=== PATIENT | male | born 1945 | race Two or more races ===

== ENCOUNTER → 2016-12-29 | Outpatient (CLI) | payer MEDICARE, OTHER ==
[~2016-12-29] MED LIST: AMLO-218 PO; ASPI325T4 PO; ATOR10TA65 PO; CARV3.12 PO; GEMF600T PO; ISOS120T15 PO; LISI10TA2 PO; MTF1000T PO; NITR0.4T6 SL
--- NOTE | 2016-12-29 11:59 | RADRPT ---
PROCEDURE: XR pelvis/left hip. CLINICAL INDICATION: Hip pain TECHNIQUE: AP pelvis/AP and lateral left hip views performed COMPARISON: No prior studies are available for comparison. FINDINGS: There is severe left hip osteoarthrosis. This is associated with joint space narrowing, subchondral sclerosis , subchondral cyst formation and osteophytosis. There is mild right hip osteoarthrosis. Th ere is normal mineralization. No fractures or osseous lesions are identified. The soft tissues are unremarkable. IMPRESSION: Severe left hip osteoarthrosis. Mild right hip osteoarthrosis RPTAT: HGDB .Trav Frias MD, Date Time Electronically viewed and signed by .Trav Frias MD, on 12/29/2016 11:59 .B/
== END | disposition home or self-care (01) ==
LOC: HKI 10:27
PROVIDERS: ATTEND Orthopaedic Surgery
DX: M25.552 Pain in left hip (principal); M16.12 Unilateral primary osteoarthritis, left hip
CPT/HCPCS: 73502; Z7500; G0463

== ENCOUNTER → 2017-05-01 | Outpatient (CLI) | payer MEDICARE, OTHER ==
[~2017-05-01] MED LIST changes: +NITR0.4T32 SL; -NITR0.4T6 SL
--- NOTE | 2017-05-01 16:05 | RADRPT ---
PROCEDURE: XR Left hip and pelvis. CLINICAL INDICATION: Left hip pain and pelvic pain. TECHNIQUE: 3 views. Frontal pelvis. Frontal and lateral left hip. COMPARISON: 12/29/2016. FINDINGS: There is severe left hip osteoarthrosis. This is associated with joint space narrowing, subchondral sclerosis , subchondral cyst formation and osteophytosis. There is mild right hip osteoarthrosis wit h osteophytes noted. There is normal mineralization. No fractures or osseous lesions are identified. Surgical clips are present in the soft tissues of the left proximal thigh. IMPRESSION: 1. Severe left hip osteoarthrosis. 2. Mild right hip osteoarthrosis. 3. Surgical clips in the soft tissues of the left proximal thigh. 4. Unremarkable study. RPTAT: QQ .Osmani Wilkerson MD, Date Time Electronically viewed and signed by .Osmani Wilkerson MD, MD on 05/01/2017 16:05 .R/
--- NOTE | 2017-05-01 22:43 | HKNOTE ---
DATE OF SERVICE: 05/01/2017 CHIEF COMPLAINT: Left hip pain. HISTORY OF PRESENT ILLNESS: This is a 71-year-old male who is complaining of progressively worsening pain in the left groin. The pain is radiating to the left knee. He has difficulty ambulating. He is unable to go up and down stairs. He is using a walker. He states that the pain is severe and rates it as 10/10. He is unable to perform his activities of daily living. He has been taking pain medications including diclofenac without any pain relief. He denies any back pain. There are no alleviating factors. PHYSICAL EXAMINATION: Gait: Antalgic gait, use of assistive device. Left hip exam: 0-80 degrees of flexion, 20 degrees obligate external rotation, -10 degrees internal rotation, 1 cm leg length discrepancy, nontender in the trochanteric region. Right hip exam: 0-100 degrees of flexion, 20 degrees of internal rotation, 40 degrees of external rotation. IMAGING: AP pelvis x-ray: There is advanced degenerative joint disease of the left hip. The left hip is 1 cm shorter than the right hip. X-ray, two-view left hip: Advanced degenerative joint disease of the left hip. IMPRESSION: A 71-year-old male with advanced osteoarthritis of the left hip who has failed nonoperative management. PLAN: We will request authorization for left total hip arthroplasty. I discussed the risks, benefits and alternatives of surgical intervention with the patient. He will return in four weeks for his preoperative evaluation. Dictated By: Liz Mcgill MD /lashae/leora /Document#: [id number]
== END | disposition home or self-care (01) ==
LOC: HKI 15:25
PROVIDERS: ATTEND Orthopaedic Surgery Adult Reconstructive Orthopaedic Surgery
DX: M25.552 Pain in left hip (principal); M16.12 Unilateral primary osteoarthritis, left hip
CPT/HCPCS: 73522; G0463

== ENCOUNTER → 2017-07-17 | Outpatient (CLI) | payer MEDICARE, OTHER ==
--- NOTE | 2017-07-17 22:01 | HKNOTE ---
DATE OF SERVICE: 07/17/2017 CHIEF COMPLAINT: Left hip pain. HISTORY OF PRESENT ILLNESS: Mr. Rivas is a 71-year-old male with previous cardiac history, who is scheduled to undergo a left total hip arthroplasty on 07/18/2017 at [facility]. He is here today for his preoperative evaluation. He is accompanied by his son. Due to his previou s cardiac history, Mr. Rivas has been taking aspirin 325 mg daily. His last dose was today. He w as previously instructed on cessation of all nonsteroidal anti-inflammatories, as well as aspirin 7 days prior to surgery. He states that he did not understand the previous instructions. Otherwise, he denies any chest pain or shortness of breath. IMPRESSION: A 71-year-old male with left hip degenerative joint disease. PLAN: I discussed risks associated with surgery including, but not limited to, infection, deep veno us thrombosis, pulmonary embolism, damage to neurovascular structures including the lateral femoral cutaneous nerve, femoral nerve and its branches, as well as the iliac artery and vein, instability, dislocation, leg length discrepancy, fracture, heart attack, stroke, risks associated with anesthesi a, need for blood transfusion, as well as . I explained to the patient and his son that given that he has not stopped aspirin 7 days prior to surgery, he is at a high risk for blood transfusion intraoperatively or postoperatively. I also placed a call to his hyperion administrator. Mr. Rivas is curr ently scheduled for a left direct anterior total hip arthroplasty on 07/18/2017 at [facility]. All questions were answered to his satisfaction and informed consent was obtained. Dictated By: BRYANT CHEN/ABEL Conf#: [id number] DID#: [id number]
== END | disposition home or self-care (01) ==
LOC: HKI 13:54
PROVIDERS: ATTEND Orthopaedic Surgery Adult Reconstructive Orthopaedic Surgery
DX: Z01.818 Encounter for other preprocedural examination (principal); M16.12 Unilateral primary osteoarthritis, left hip
CPT/HCPCS: G0463

== ENCOUNTER 2017-07-18 09:30 | Inpatient (IN) | payer MEDICARE, OTHER ==
[2017-07-17 10:33] VITALS: BMI 32.0
[~2017-07-18] VITALS: Ht 170.2 cm; Wt 93.1 kg
[~2017-07-18 09:30] MED LIST changes: +ACETAMINOPHEN 1000MG/100ML IV 100 ML IVPB ONE; +CEFAZOLIN 2 GM/50 ML (PMX) 50 ML IVPB ONE; +CELECOXIB 200 MG CAP PO ONE; +DEXAMETHASONE 4 MG/ML 1 ML INJ IV ONE; +HIP PAIN COCKTAIL (CEFUROXIME) INJ SCH; +LACTATED RINGER'S 1,000 ML IV* SCH; +LANSOPRAZOLE 30 MG CAP PO ONE; +ONDANSETRON 4 MG INJ IV ONE; +TRANEXAMIC ACID 1,000 MG in DEXTROSE 5% 100 ML IV ONE; +TRANEXAMIC ACID 1,000 MG in DEXTROSE 5% 100 ML IVPB ONE; +oxyCODONE (CR) 10 MG TAB [oxyCONTIN] PO ONE
[2017-07-25] VITALS (26 sets, daily range): BP systolic 87–150; BP diastolic 53–81; PULSE 66–81; RESP 6–20; Ht 170.2 cm; Wt 93.1 kg
--- NOTE | 2017-07-25 06:51 | RADRPT ---
PROCEDURE: XR Chest. CLINICAL INDICATION: Preoperative evaluation prior to general anesthesia TECHNIQUE: Portable single view of the chest COMPARISON: 12/21/2015 FINDINGS: Median sternotomy wires and atherosclerotic aorta. Normal heart size. There has been interval placem ent of a 2 lead AICD device with generator on the left. The lungs are clear and no pleural effusion or significant edema is seen. No bony abnormality is seen. IMPRESSION: Interval AICD placement. No acute pulmonary disease. Aortic atherosclerosis. RPTAT: HLBE Physician Spencer Date Time Electronically viewed and signed by Catrachita Barry Physician on 07/25/2017 06:51 LE/
[2017-07-25] MEDS ORDERED: POLYMYXIN/BACITRACIN 1L IRRIG ONE (06:56)
[2017-07-25] MEDS ORDERED: POLYMYXIN B 500000 UNIT INJ ONE (06:57)
[2017-07-25] MEDS ORDERED: BACITRACIN 50000 UNITS INJ ONE (06:59)
[2017-07-25] MEDS ORDERED: TRANEXAMIC ACID 1,000 MG in SOD CHLORIDE 0.9% 100 ML IV ONE (07:00)
[2017-07-25] MEDS ORDERED: ACETAMINOPHEN 1000MG/100ML IV 100 ML IVPB ONE (07:00)
[2017-07-25] MEDS ORDERED: CEFAZOLIN 2 GM/50 ML (PMX) 50 ML IVPB ONE (07:00)
[2017-07-25] MEDS ORDERED: oxyCODONE (CR) 10 MG TAB [oxyCONTIN] PO ONE (07:00)
[2017-07-25] MEDS ORDERED: CELECOXIB 200 MG CAP PO ONE (07:00)
[2017-07-25] MEDS ORDERED: LACTATED RINGER'S 1,000 ML IV* SCH (07:00)
[2017-07-25] MEDS ORDERED: LANSOPRAZOLE 30 MG CAP PO ONE (07:00)
[2017-07-25] MEDS ORDERED: HIP PAIN COCKTAIL (CEFUROXIME) INJ SCH ×7 (07:00)
[2017-07-25] MEDS ORDERED: ETOMIDATE 20 MG INJ ONE (07:00)
[2017-07-25] MEDS ORDERED: DEXAMETHASONE 4 MG/ML 1 ML INJ IV ONE (07:00)
[2017-07-25] MEDS ORDERED: ONDANSETRON 4 MG INJ IV ONE (07:00)
[2017-07-25] MEDS ORDERED: TRANEXAMIC ACID 1,000 MG in SOD CHLORIDE 0.9% 100 ML IVPB ONE (07:00)
--- NOTE | 2017-07-25 07:25 | HPN ---
Date/Time of Note Date/Time of Note DATE: 07/25/17 TIME: 07:24 Interval H&P Admission Note Pt. seen H&P reviewed: No system changes CONNER KHOURY PA-C Jul 25, 2017 07:25
[2017-07-25] MEDS ORDERED: FENTAnyl 50 MCG/ML VIAL ONE (07:34)
[2017-07-25] MEDS ORDERED: ROCURONIUM 50 MG INJ ONE (08:41)
[2017-07-25] MEDS ORDERED: LIDOCAINE 2% (SDV) 5 ML INJ ONE (08:41)
[2017-07-25] MEDS ORDERED: PROPOFOL 20 ML ONE (08:41)
[2017-07-25] MEDS ORDERED: SUGAMMADEX SODIUM 200 MG/2 ML VIAL IV ONE (08:41)
[2017-07-25] MEDS ORDERED: SUCCINYLCHOLINE CHLORIDE 100 MG/5 ML SYG IV ONE (08:41)
[2017-07-25] MEDS ORDERED: CEFAZOLIN 1 GM INJ ONE (08:41)
[2017-07-25] MEDS ORDERED: ONDANSETRON 4 MG INJ IV PRN (10:00)
[2017-07-25] MEDS ORDERED: MEPERIDINE 25 MG INJ IV PRN (10:00)
[2017-07-25] MEDS ORDERED: METOCLOPRAMIDE 10 MG INJ IV PRN (10:00)
[2017-07-25] MEDS ORDERED: HYDROmorphONE (0.2 MG/ML) 10ML SYG IV PRN (10:00)
[2017-07-25] MEDS ORDERED: FENTAnyl 50 MCG/ML VIAL IV PRN ×2 (10:00)
[2017-07-25] MEDS ORDERED: DIPHENHYDRAMINE 50 MG INJ IV PRN (10:00)
--- NOTE | 2017-07-25 10:21 | RADRPT ---
PROCEDURE: Intraoperative imaging of the left hip with fluoroscopy. CLINICAL INDICATION: Left hip pain. Intraoperative. TECHNIQUE: 8 images of the left hip were obtained in the operating room with an image intensifier. No radiologist was in attendance. 0.5 minutes of fluoroscopy time was used. COMPARISON: No prior study is available for comparison. FINDINGS: Images demonstrate placement of a total left hip arthroplasty. IMPRESSION: 1. Satisfactory intraoperative imaging of the left hip. RPTAT: QQ .Osmani Wilkerson MD, MD Date Time Electronically viewed and signed by .Osmani Wilkerson MD, on 07/25/2017 10:21 .R/
--- NOTE | 2017-07-25 10:33 | SIPON ---
Date/Time of Note Date/Time of Note DATE: 07/25/17 TIME: 10:30 Operative Report Preoperative Diagnosis Left Hip Osteoarthritis Postoperative Diagnosis Same Operation/Procedure Performed Left Anterior Total Hip Arthroplasty Surgeon Liz Hutton MD respiratory equipment assistant Ayo Oliveira Second assist: CONNER KHOURY PA-C Anesthesia: general Estimated blood loss: 150 - 200 ml's Transfusion Required none Specimen Resected Bone Grafts/Implants Depuy 56mm Franklin Cup, size 12 corail stem STD offset, 36mm +1.5 Biolox ceramic head, 25mm cancellous screw Complications none LIZ HUTTON MD Jul 25, 2017 10:33
--- NOTE | 2017-07-25 11:02 | PDOCDIS ---
Discharge Instructions DIAGNOSIS Discharge Diagnosis Status post left total hip arthroplasty via anterior route. CONDITION Patient Condition: Good HOME CARE INSTRUCTIONS: Diet Instructions: Regular ACTIVITY: Activity Restrictions: Slowly Increase Activity Rest between Activity Avoid heavy lifting No Sexual Activity Do not Drive Do not operate Machinery Do not operate Power Tool Avoid Heavy Housework Keep Limb Elevated (May use cold therapy over surgical dressing. ) Weight Bearing (Weight-bear as tolerated using front wheeled walker.) Bathing Restrictions: Shower (No water to the surgical area until seen postoperative. Keep this area clean and dry.) FOLLOW UP/APPOINTMENTS Follow-up Plan Follow-up at your postoperative visit provided to you at your preoperative exam. CONNER KHOURY PA-C Jul 25, 2017 11:02
[2017-07-25] MEDS: HYDROmorphONE (0.2 MG/ML) 10ML SYG IV PRN ×2 (11:14→11:21)
[2017-07-25] MEDS ORDERED: BETHANECHOL 25 MG TAB PO PRN (11:30)
[2017-07-25] MEDS ORDERED: BISACODYL 10 MG SUPP PR PRN (12:00)
[2017-07-25] MEDS ORDERED: MAGNESIUM HYDROXIDE 30ML CUP PO PRN (12:00)
[2017-07-25] MEDS ORDERED: SENNA/DOCUSATE NA (8.6MG/50MG) TAB PO PRN (12:00)
[2017-07-25] MEDS ORDERED: ZOLPIDEM 5 MG TAB PO PRN (12:00)
[2017-07-25] MEDS ORDERED: DIPHENHYDRAMINE 50 MG INJ IM PRN (12:00)
[2017-07-25] MEDS ORDERED: NA PHOSPHATE/BIPHOS 133 ML ENEMA PR PRN (12:00)
[2017-07-25] MEDS ORDERED: oxyCODONE 5 MG TAB PO PRN ×2 (12:00)
[2017-07-25] MEDS ORDERED: DOCUSATE SODIUM 100 MG CAP PO ONE (12:00)
[2017-07-25] MEDS: ONDANSETRON 4 MG INJ IV SCH ×2 (12:00→18:00)
[2017-07-25] MEDS ORDERED: ASPIRIN (EC) 325 MG TAB PO ONE (12:00)
[2017-07-25] MEDS: CEFAZOLIN 1 GM/50 ML (PMX) 50 ML IVPB SCH ×2 (12:18→19:55)
--- NOTE | 2017-07-25 12:33 | OPR ---
DATE OF OPERATION: 07/25/2017 PREOPERATIVE DIAGNOSIS: Left hip osteoarthritis. POSTOPERATIVE DIAGNOSIS: Left hip osteoarthritis. PROCEDURES PERFORMED: 1. Left total hip arthroplasty. CPT code 68643. 2. Computer assisted navigational procedure, CPT code 30178. 3. Interpretation of AP x-ray pelvis. 4. Interpretation of left hip x-ray, 2 views. SURGEON: Bryant Mcgill M.D. MEDICAL RECORD CLERK: 1. Ayo Oliveira. 2. Luis A Coleman. ANESTHESIOLOGIST: Dr. Woods. ANESTHESIA: General. ESTIMATED BLOOD LOSS: 200 mL. COMPLICATIONS: None. SPECIMENS: Resected bone. DISPOSITION: To PACU in stable condition. IMPLANT USED: A size 56 DePuy Rockwood cup, size 12 DePuy corail femoral stem standard offset 36 mm +1.5 Biolox Delta Ceramic femoral head, 25 mm cancellous screw. COMPLICATIONS: None. DISPOSITION: PACU in stable condition. INDICATION FOR PROCEDURE: This is a 71-year-old male with endstage osteoarthritis of the left hip with failed nonoperative management. Risks, benefits, alternatives of surgical intervention were discussed with the patient and informed consent was obtained. The risks of surgery include but are not limited to infection, deep venous thrombosis and limited to infection, deep venous thrombosis, pulmonary embolism , leg length discrepancy, fracture, damage to neurovascular structures requiring repair or loosening of the prosthesis, wear of prosthesis, need for revision surgery, heart attack, stroke, need for blood transfusion, risks associated with anesthesia and even . DESCRIPTION OF PROCEDURE: The patient was met in the partially the correct operative site was confirmed and marked. Patient was then brought into operating room. After induction of general anesthesia, he was placed in the supine position on the operating table. The left hip was prepped and draped in the usual sterile fashion. Before starting, a timeout was taken to identify the correct operative site and confirm the preoperative antibiotics consisting of 1 gram of IV Ancef, along with 1 gram of tranexamic acid were administered. At this point, an 8 cm incision was made approximately 2 cm lateral and 1 cm distal to the ASIS. The incision was carried down to the fascia. The fascia was then incised. Two Allis clamps were placed and the interval was then bluntly developed and the tensor fascia romel was then retracted laterally. The lateral circumflex vessels were identified and coagulated. The anterior capsule was then visualized and a capsulotomy was performed. At this point, markings were made for the napkin ring osteotomy of the femoral neck using the saw. The initial osteotomy was made and completed with the use of osteotome, a Delbert was then used to remove the napkin ring and a corkscrew was then placed in the femoral head and the head was then removed. The head was sized to 51 mm. Sequential reaming was begun with a 49 mm reamer in order to medialize the cup going up to a 55 mm reamer. A size 56 mm trial cup was then impacted into place and the radlink was used to determine the appropriate anteversion and abduction of the cup which was measured to be approximately 43 degrees of abduction with 24 degrees of anteversion. The trial cup was then removed and the appropriate size 56 mm Rockwood cup was then impacted into place on the radlink was used terminating clinician anteversion which was noted to be unchanged. At this point a 25 mm screw was placed in the posterior superior quadrant, a 36 mm liner was then impacted into place and the final acetabular x- rays were taken which again demonstrated the cup to be in appropriate abduction and anteversion. At this point, the femoral hook was used through was used and the leg was placed in external rotation, extension and adduction retractors were placed and the femoral release was performed using the box osteotome followed by a canal finder. Sequential broaching was begun with a broach going up to a size 12 broach. A trial 12 mm standard offset stem with a 36 mm +1.5 trial head and neck were placed. The hip was then reduced, taken through range of motion and noted to be stable in extension and external rotation looked to 120 degrees. After obtaining AP x-rays of the pelvis as well as left hip 2 view x-rays demonstrated that the leg lengths were equal and upon to be in appropriate position. The trial components were removed. The appropriate size components were placed. The hip was again reduced with unchanged stability and equal leg lengths and no fractures were seen. The hip was again taken through range of motion and noted to be stable. The wound was thoroughly irrigated. The capsule and fascia were closed using #1 Vicryl interrupted [id number] fashion. The subcutaneous tissue was closed using #2-0 Vicryl and the skin with 4-0 Monocryl in subcuticular fashion. Steri-Strips were applied. There were no complications. Patient was awakened and taken to postoperative care unit in stable condition. Prior to transfer. He was noted to have equal leg lengths. Palpable dorsalis pedis pulses. POSTOPERATIVE CARE: Patient will be weightbearing as tolerated. He will work with physical therapy. He will receive 2 additional doses of IV Ancef along with aspirin 325 mg p.o. b.i.d. for 6 weeks. He will have SCDs while in the hospital. Upon discharge, he will follow up in my office at the [facility] within 2 weeks postoperatively. Dictated By: BRYANT CHEN/ABEL Conf#: [id number] DID#: [id number] MTDD
--- NOTE | 2017-07-25 13:05 | RADRPT ---
PROCEDURE: XR Pelvis. CLINICAL INDICATION: Postop. TECHNIQUE: Single AP view of the pelvis. COMPARISON: 05/02/2017. FINDINGS: There are postsurgical changes of a total left hip arthroplasty. Hardware appears intact without jessie dence of hardware complication. There is soft tissue edema and gas about the left hip. There is no d efinite acute fracture or dislocation. Osseous alignment appears maintained. Ctoe catheter projecting over the pelvis. IMPRESSION: Postsurgical changes of a total left hip arthroplasty without evidence of hardware complication. RPTAT: AAEE Ryan Carlos Physician Date Time Electronically viewed and signed by Ryan Carlos Physician on 07/25/2017 13:04 PH/
--- NOTE | 2017-07-25 13:06 | RADRPT ---
PROCEDURE: XR Hip. CLINICAL INDICATION: Postop. TECHNIQUE: AP view of the left hip were performed. COMPARISON: Same day radiograph of the pelvis. FINDINGS: Postsurgical changes of a total left hip arthroplasty without evidence of hardware complication. The re is soft tissue edema and gas about the left hip related to surgery. There is no definite acute fr acture or dislocation. Osseous alignment appears maintained. IMPRESSION: Postsurgical changes of a total left hip arthroplasty without evidence of hardware complication. RPTAT: AAEE Ryan Carlos Physician Date Time Electronically viewed and signed by Ryan Carlos Physician on 07/25/2017 13:05 PH/
[2017-07-25] MEDS: SOD CHLORIDE 0.9% 1,000 ML IV SCH ×2 (13:18→23:33)
[2017-07-25] MEDS ORDERED: CEFAZOLIN 1 GM/50 ML (PMX) 50 ML IVPB SCH (14:00)
--- NOTE | 2017-07-25 14:18 | CONS ---
Date/Time of Note Date/Time of Note DATE: 07/25/17 TIME: 14:12 Assessment/Plan Assessment/Plan Chief Complaint/Hosp Course 71-year-old male who was brought to [facility] for elective left hip arthroplasty by orthopedic colleagues. 1. Left hip osteoarthritis. Status post left hip arthroplasty 07/25/2017. Status: Acute. -Postoperative anticoagulation, diet, weightbearing and antibiotics per orthopedic surgery team. -Continue pain control. 2. Coronary artery disease with history of CABG/PTCA with stenting status: Chronic. Status: Chronic - Resume home medications. 3. Severe cardiomyopathy with last known ejection fraction 20%. Status post AICD placed. Status: Chronic -Continue outpatient medical management. 4. Essential hypertension. Status: Chronic -We will resume home medications with some titration as blood pressure allows. 5. Hypercholesterolemia. Status: Chronic. -Resume statin. Obtain a lipid panel in a.m. 6. Type 2 diabetes. Status: Chronic. -We will place patient on Accu-Cheks/ISS/Lantus insulin. Hold metformin for now. -Obtain A1c. 7. Chronic anemia. -Obtain a baseline CBC with H&H. DVT prophylaxis: As per orthopedic team. Rest of the recommendation per hospital course. Approximately 60 minutes was spent on this consultation. Thank you for allowing us to partake in the care of Mr. Chet Rivas. Approximately 60 minutes was spent on this consultation. Patient was seen in collaboration with . Problems: Consultation Date/Type/Reason Admit Date/Time Jul 25, 2017 at 05:30 Reason for Consultation Postoperative medical management. Referring Provider: BRYANT HUTTON MD Hx of Present Illness This is a 71-year-old male with multiple comorbidities including left hip osteoarthritis, coronary artery disease, CABG, valve surgeries, PTCA with cardiac stents, ischemic cardiomyopathy with last known ejection fraction 20% with AICD placed, hypertension, type 2 diabetes, hypercholesterolemia, chronic anemia, who was brought to [facility] by orthopedic colleagues for elective left total hip arthroplasty on 07/25/2017. Hospitalist consultation was requested for postoperative medical management. Patient was seen at room 420 postoperatively, he currently denies any chest pain, shortness of breath, palpitation, nausea, vomiting, left leg pain, dizziness, lightheadedness or other constitutional symptoms. There is no current labs available to review. Vital signs with temperature 98.2 , pulse rate 68, blood pressure 96/58 and oxygen saturation 100% on 2 L nasal cannula. A 12 point review of system was assessed and is negative other than what is mentioned in the HPI. Past Medical History See HPI Past Surgical History See HPI Social History Patient denied history of alcohol, smoking or illicit drug use. Smoking Status: Never smoker Exam/Review of Systems Vital Signs Vitals Vital Signs Date Time Temp Pulse Resp B/P Pulse Ox O2 Delivery O2 Flow Rate FiO2 07/25/17 12:28 68 7 96/58 100 Nasal Cannula 2.0 07/25/17 11:05 98.2 Exam General: Well developed,adequately built, not in any acute distress . HEENT: Normocephalic, Atraumatic, No laceration or hematoma; Eyes: PEERL, Conjunctiva clear, Anicteric sclera Neck: Supple without any lymphadenopathy, nontender, no JVD, no carotid bruits, trachea midline, no thyromegaly Cardiac: S1, S2 auscultated, regular rhythm and rate, no mumurs or gallop Pulmonary: Normal respiratory effort. Chest clear to auscultation bilaterally, no adventitious breath sounds GI: Abdomen normal to inspection. Soft, non tender, non- distended, no masses, no rebound tenderness or guarding. Bowel sounds active on all four quadrants Genitourinary: Deferred Extremities: Left hip surgical site intact. Range of motion decreased on left lower extremity secondary to surgical intervention. No cyanosis, clubbing, or edema. Pulses [2+] bilaterally. No focal weakness appreciated. Neurologic: Alert to person, place, time, and situation. Affect appropriate, intact sensation. Skin: Clean,dry, and intact. No ecchymosis, no rashes, or lesions Results Results 24 hrs Laboratory Tests Test 07/25/17 06:40 Bedside Glucose 136 Medications Medications Current Medications Ropivacaine 60 ml/ Morphine Sulfate 4 mg/Clonidine 100 mcg/ Epinephrine 0.3 mg/ Ketorolac Tromethamine 30 mg/Cefuroxime Sodium 750 mg/ Sodium Chloride 50 ml INTRA-OP INJ Last administered on 07/25/17t 08:23; Admin Dose 30 ML; Start at 07:00; Stop 07/28/17 at 06:59 Lactated Ringer's 1,000 ml @ 125 mls/hr Q8H IV* ; Start 07/25/17 at 07:00 Sodium Chloride (NS) 1,000 ml @ 80 mls/hr [id number] IV Last administered on t 13:18; Admin Dose 80 MLS/HR; Start 07/25/17 at 11:03 Oxycodone HCl (Roxicodone) 20 mg Q3H PRN PO PAIN LEVEL 8-10; Start 07/25/17 at 12:00 Oxycodone HCl (Roxicodone) 10 mg Q3H PRN PO PAIN LEVEL 4-7; Start 07/25/17 at 12:00 Oxycodone HCl (Roxicodone) 5 mg Q3H PRN PO PAIN LEVEL 1-3; Start 07/25/17 at 12:00 Zolpidem Tartrate (Ambien) 5 mg HS PRN PO INSOMNIA; Start 07/25/17 at 12:00 Ondansetron HCl 4 mg 4 mg Q6H IV ; Start 07/25/17 at 12:00; Stop 07/26/17 at 06:01 Cefazolin Sodium (Ancef 1 Gm/50 ml (Pmx)) 50 ml @ 100 mls/hr Q8H IVPB Last administered on 07/25/17t 12:18; Admin Dose 100 MLS/HR; Start 07/25/17 at 12: 00; Stop 07/26/17 at 04:29 Celecoxib (Celebrex) 200 mg BID PO ; Start 07/26/17 at 09:00 Pantoprazole (Protonix Tab) 40 mg DAILY@06 PO ; Start 07/26/17 at 06:00 Docusate Sodium/ Ferrous Fumarate (Kerri-Sequels) 1 tab BID PO ; Start at 09:00 Docusate Sodium (Colace) 200 mg BID PO ; Start 07/26/17 at 09:00; Stop at 21:01 Simethicone (Mylicon) 80 mg TID PRN PO DISTENSION/GAS/BLOATING; Start at 12:00 Senna/Docusate Sodium (Senokot-S) 2 tab BID PRN PO CONSTIPATION; Start at 12:00 Magnesium Hydroxide (Milk Of Mag) 30 ml HS PRN PO CONSTIPATION; Start at 12:00 Bisacodyl (Dulcolax Supp) 10 mg DAILY PRN [place] CONSTIPATION; Start 07/25/17 at 12:00 Sodium Biphosphate/ Sodium Phosphate (Fleet Enema) 133 ml DAILY PRN [place] CONSTIPATION; Start 07/25/17 at 12:00 Diphenhydramine HCl (Benadryl) 25 mg Q4H PRN IM ITCHING OR RASH; Start at 12:00 Aspirin (Ecotrin) 325 mg BID PO ; Start 07/25/17 at 21:00 GEMA APARICIO NP Jul 25, 2017 14:18 GEMA APARICIO NP Jul 25, 2017 14:18
[2017-07-25] MEDS ORDERED: DEXTROSE 50% 50 ML SYRINGE IV PRN ×2 (15:00)
[2017-07-25] MEDS ORDERED: GLUCOSE GEL 15 GRAM TUBE PO PRN ×2 (15:00)
[2017-07-25] MEDS ORDERED: GLUCOSE GEL 15 GRAM TUBE BUCCAL PRN (15:00)
[2017-07-25] MEDS ORDERED: GLUCAGON 1 MG INJ IM PRN (15:00)
[2017-07-25] MEDS: oxyCODONE 5 MG TAB PO PRN (15:35)
[2017-07-25] MEDS: INSULIN ASPART [NOVOLOG] 3 ML PEN SC SCH ×2 (18:05→20:50)
[2017-07-25] MEDS: ASPIRIN (EC) 325 MG TAB PO SCH (20:48)
[2017-07-25] MEDS: ATORVASTATIN 10 MG TAB PO SCH (20:48)
[2017-07-25] MEDS: GEMFIBROZIL 600 MG TAB PO SCH (20:48)
[2017-07-26] MEDS: SOD CHLORIDE 0.9% 1,000 ML IV SCH ×3 (00:40→23:57)
[2017-07-26] MEDS: ACCU-CHEK XX SCH (02:00)
[2017-07-26] MEDS: CEFAZOLIN 1 GM/50 ML (PMX) 50 ML IVPB SCH (04:12)
[2017-07-26 05:00] VITALS: BP 128/68; PULSE 76; RESP 20
[2017-07-26] MEDS: ONDANSETRON 4 MG INJ IV SCH ×2 (05:15)
[2017-07-26] MEDS: PANTOPRAZOLE (EC) 40 MG TAB PO SCH (05:16)
[2017-07-26 05:56] LABS: BASOPHILS % 0.1 % (0.0-2.0); HEMATOCRIT 24.7 % (42.0-52.0); LYMPHOCYTES % 11.5 % (15.0-51.0); MEAN CORPUSCULAR HEMOGLOBIN 27.9 pg (29.0-33.0); MEAN CORPUSCULAR HGB CONC 32.4 g/dl (32.0-37.0); MEAN CORPUSCULAR VOLUME 86.1 fl (82.0-101.0); MEAN PLATELET VOLUME 9.4 fl (7.4-10.4); MONOCYTE # 0.8 10^3/ul (0.3-0.9); MONOCYTES % 8.4 % (0.0-11.0); NEUTROPHIL # 7.2 10^3/ul (1.6-7.5); NEUTROPHILS % 79.7 % (39.0-77.0); PLATELET COUNT 295 10^3/UL (140-415); RED BLOOD COUNT 2.87 10^6/ul (4.70-6.10); RED CELL DISTRIBUTION WIDTH 16.3 % (11.5-14.5)
[2017-07-26 06:29] LABS: CALCIUM 8.8 mg/dl (8.4-10.2); CREATININE 0.86 mg/dl (0.61-1.24); POTASSIUM 4.3 mmol/L (3.5-5.1)
[2017-07-26 06:40] LABS: CHOL/HDL RATIO 2.6 RATIO; MAGNESIUM 1.7 mg/dl (1.7-2.5)
[2017-07-26 07:24] LABS: THYROID STIMULATING HORMONE 0.42 MIU/L (0.465-4.680)
[2017-07-26] MEDS: INSULIN ASPART [NOVOLOG] 3 ML PEN SC SCH ×4 (07:50→21:00)
[2017-07-26 07:58] VITALS: BP 129/67; RESP 16
--- NOTE | 2017-07-26 08:11 | PN ---
Date/Time of Note Date/Time of Note DATE: 07/26/17 TIME: 08:09 Assessment/Plan VTE Prophylaxis VTE Prophylaxis Intervention: ambulation, SCD's, other (Aspirin 325 mg) Lines/Catheters IV Catheter Type (from Nrsg): Peripheral IV Cote in Place (from Nrsg): Yes Assessment/Plan Assessment/Plan -Pain Meds as needed -Dressing is clean and intact. -OOB with PT -ASA/SCDs for DVT Prophylaxis -Continue monitoring with Internal Medicine -Patient Stable -Expected discharge tomorrow home with home health pending clearance from physical therapy. Subjective 24 Hr Interval Summary 71-year-old male postop day 1 status post left total hip arthroplasty via anterior route. Denies any acute overnight events. Pain is well controlled as he has no complaints. Resting comfortably in bed. Patient states that he has not performed physical therapy status post surgery yet. Denies any chest pain/ tightness, calf pain or shortness of breath. Pain Control: well controlled Exam/Review of Systems Vital Signs Vitals Vital Signs Date Time Temp Pulse Resp B/P Pulse Ox O2 Delivery O2 Flow Rate FiO2 07/26/17 07:58 98.8 75 16 129/67 100 07/25/17 14:15 Nasal Cannula 2.0 Intake and Output 07/25/17 07/25/17 07/26/17 15:00 23:00 07:00 Intake Total 1300 ml 1010 ml 1450 ml Output Total 400 ml 300 ml 1400 ml Balance 900 ml 710 ml 50 ml Exam Free Text/Dictation -No complications with dressing intact. -Thigh soft -5/5 Quadriceps, Tibialis Anterior, EHL Gastrocnemius/Soleus and Peroneals -Normal Sensation -Able to actively flex the hip up to 20 today. Patient is performing plantarflexion and dorsiflexion as well as inversion and eversion to the ankle. -Palpable DP/PT, Capillary Refill <2 secs -No Distal Edema -Negative Leidy Sign/No calf pain -Toes Freely Movable Constitutional: alert, oriented, well developed Results Result Diagram: 07/26/17 0457 07/26/17 0457 CONNER KHOURY PA-C Jul 26, 2017 08:11
[2017-07-26] MEDS: CELECOXIB 200 MG CAP PO SCH ×2 (08:26→21:09)
[2017-07-26] MEDS: DOCUSATE SODIUM 100 MG CAP PO SCH ×2 (08:26→21:09)
[2017-07-26] MEDS: ASPIRIN (EC) 325 MG TAB PO SCH ×2 (08:26→21:09)
[2017-07-26] MEDS: GEMFIBROZIL 600 MG TAB PO SCH ×2 (08:27→21:09)
[2017-07-26] MEDS: FERROUS FUMARATE (SR) TAB PO SCH ×2 (08:27→21:09)
[2017-07-26] MEDS: INSULIN GLARGINE [LANtus] 3 ML PEN SC SCH (08:30)
[2017-07-26] MEDS ORDERED: AMLODIPINE 10 MG TAB PO SCH (09:00)
[2017-07-26] MEDS ORDERED: ISOSORBIDE MONONITRATE(SR)60 MG TAB PO SCH ×2 (09:00)
[2017-07-26] MEDS: LISINOPRIL 10 MG TAB PO SCH (09:18)
--- NOTE | 2017-07-26 13:21 | CONS ---
Date/Time of Note Date/Time of Note DATE: 07/26/17 TIME: 13:15 Assessment/Plan Assessment/Plan Chief Complaint/Hosp Course 71-year-old male who was brought to [facility] for elective left hip arthroplasty by orthopedic colleagues. 1. Left hip osteoarthritis. Status post left hip arthroplasty 07/25/2017. Status: Acute. -Postoperative anticoagulation, diet, weightbearing and antibiotics per orthopedic surgery team. -Continue pain control. 2. Coronary artery disease with history of CABG/PTCA with stenting status: Chronic. Status: Chronic - Continue home medications. 3. Severe cardiomyopathy with last known ejection fraction 20%. Status post AICD placed. Status: Chronic -Continue outpatient medical management. 4. Essential hypertension. Status: Chronic. Comment: Stable. -Continue current antihypertensives regimen-will titrate as indicated. 5. Hypercholesterolemia. Status: Chronic. Comment: stable. -On statin. 6. Type 2 diabetes. Status: Chronic. Comment: Well controlled w/A1C 6.5. In goal sugar range. -Continue Accu-Cheks/ISS/Lantus insulin. Hold metformin for now. 7. Chronic anemia. Status:Chronic. Comment: HH borderline low,likely post operative-no active bleed. -Obtain iron panel/ferritin. -Monitor DVT prophylaxis: As per orthopedic team. Patient was seen in collaboration with . Problems: Consultation Date/Type/Reason Admit Date/Time Jul 25, 2017 at 05:30 Initial Consult Date Referring Provider: BRYANT HUTTON MD 24 HR Interval Summary Free Text/Dictation No acute distress. Has been up and ambulated . Exam/Review of Systems Vital Signs Vitals Vital Signs Date Time Temp Pulse Resp B/P Pulse Ox O2 Delivery O2 Flow Rate FiO2 07/26/17 07:58 98.8 75 16 129/67 100 07/25/17 14:15 Nasal Cannula 2.0 Intake and Output 07/25/17 07/25/17 07/26/17 15:00 23:00 07:00 Intake Total 1300 ml 1010 ml 1450 ml Output Total 400 ml 300 ml 1400 ml Balance 900 ml 710 ml 50 ml Exam General: Well developed,adequately built, not in any acute distress . HEENT: Normocephalic, Atraumatic, No laceration or hematoma; Eyes: PEERL, Conjunctiva clear, Anicteric sclera Neck: Supple without any lymphadenopathy, nontender, no JVD, no carotid bruits, trachea midline, no thyromegaly Cardiac: S1, S2 auscultated, regular rhythm and rate, no mumurs or gallop Pulmonary: Normal respiratory effort. Chest clear to auscultation bilaterally, no adventitious breath sounds GI: Abdomen normal to inspection. Soft, non tender, non- distended, no masses, no rebound tenderness or guarding. Bowel sounds active on all four quadrants Genitourinary: Deferred Extremities: Left hip surgical site intact. Range of motion decreased on left lower extremity secondary to surgical intervention. No cyanosis, clubbing, or edema. Pulses [2+] bilaterally. No focal weakness appreciated. Neurologic: Alert to person, place, time, and situation. Affect appropriate, intact sensation. Skin: Clean,dry, and intact. No ecchymosis, no rashes, or lesions Results Result Diagram: 07/26/17 0457 07/26/17 0457 Results 24 hrs Laboratory Tests Test 07/25/17 17:36 07/25/17 20:46 07/26/17 04:57 07/26/17 08:07 Bedside Glucose 164 163 124 White Blood Count 9.0 Red Blood Count 2.87 L Hemoglobin 8.0 L Hematocrit 24.7 L Mean Corpuscular Volume 86.1 Mean Corpuscular Hemoglobin 27.9 L Mean Corpuscular Hemoglobin Concent 32.4 Red Cell Distribution Width 16.3 H Platelet Count 295 Mean Platelet Volume 9.4 Neutrophils % 79.7 H Lymphocytes % 11.5 L Monocytes % 8.4 Eosinophils % 0.0 Basophils % 0.1 Nucleated Red Blood Cells % 0.0 Neutrophils # 7.2 Lymphocytes # 1.0 Monocytes # 0.8 Eosinophils # 0.0 Basophils # 0.0 Nucleated Red Blood Cells # 0.0 Sodium Level 139 Potassium Level 4.3 Chloride Level 107 Carbon Dioxide Level 21 Anion Gap 15 Blood Urea Nitrogen 16 Creatinine 0.86 Glucose Level 129 Hemoglobin A1c 6.5 H Calcium Level 8.8 Phosphorus Level 4.0 Magnesium Level 1.7 Triglycerides Level 93 Cholesterol Level 97 L LDL Cholesterol, Calculated 42 HDL Cholesterol 36 Cholesterol/HDL Ratio 2.6 Thyroid Stimulating Hormone (TSH) 0.420 L Test 07/26/17 12:36 Bedside Glucose 119 Medications Medications Current Medications Ropivacaine 60 ml/ Morphine Sulfate 4 mg/Clonidine 100 mcg/ Epinephrine 0.3 mg/ Ketorolac Tromethamine 30 mg/Cefuroxime Sodium 750 mg/ Sodium Chloride 50 ml INTRA-OP INJ Last administered on 07/25/17 08:23; Admin Dose 30 ML; Start at 07:00; Stop 07/28/17 at 06:59 Sodium Chloride (NS) 1,000 ml @ 80 mls/hr [id number] IV Last administered on 00:40; Admin Dose 80 MLS/HR; Start 07/25/17 at 11:03 Oxycodone HCl (Roxicodone) 20 mg Q3H PRN PO PAIN LEVEL 8-10; Start 07/25/17 at 12:00 Oxycodone HCl (Roxicodone) 10 mg Q3H PRN PO PAIN LEVEL 4-7 Last administered on 07/25/17 15:35; Admin Dose 10 MG; Start 07/25/17 at 12:00 Oxycodone HCl (Roxicodone) 5 mg Q3H PRN PO PAIN LEVEL 1-3 Last administered on 07/26/17 10:15; Admin Dose 5 MG; Start 07/25/17 at 12:00 Zolpidem Tartrate (Ambien) 5 mg HS PRN PO INSOMNIA; Start 07/25/17 at 12:00 Celecoxib (Celebrex) 200 mg BID PO Last administered on 07/26/17 08:26; Admin Dose 200 MG; Start 07/26/17 at 09:00 Pantoprazole (Protonix Tab) 40 mg DAILY@06 PO Last administered on 07/26/17 05:16; Admin Dose 40 MG; Start 07/26/17 at 06:00 Docusate Sodium/ Ferrous Fumarate (Kerri-Sequels) 1 tab BID PO Last administered on 07/26/17 08:27; Admin Dose 1 TAB; Start 07/26/17 at 09:00 Docusate Sodium (Colace) 200 mg BID PO Last administered on 07/26/17 08:26; Admin Dose 200 MG; Start 07/26/17 at 09:00; Stop 07/28/17 at 21:01 Simethicone (Mylicon) 80 mg TID PRN PO DISTENSION/GAS/BLOATING; Start at 12:00 Senna/Docusate Sodium (Senokot-S) 2 tab BID PRN PO CONSTIPATION; Start at 12:00 Magnesium Hydroxide (Milk Of Mag) 30 ml HS PRN PO CONSTIPATION; Start at 12:00 Bisacodyl (Dulcolax Supp) 10 mg DAILY PRN [place] CONSTIPATION; Start 07/25/17 at 12:00 Sodium Biphosphate/ Sodium Phosphate (Fleet Enema) 133 ml DAILY PRN [place] CONSTIPATION; Start 07/25/17 at 12:00 Diphenhydramine HCl (Benadryl) 25 mg Q4H PRN IM ITCHING OR RASH; Start at 12:00 Aspirin (Ecotrin) 325 mg BID PO Last administered on 07/26/17 08:26; Admin Dose 325 MG; Start 07/25/17 at 21:00 Atorvastatin Calcium (Lipitor) 10 mg HS PO Last administered on 07/25/17 20: 48; Admin Dose 10 MG; Start 07/25/17 at 21:00 Carvedilol (Coreg) 3.125 mg BID PO Last administered on 07/26/17 08:27; Admin Dose 3.125 MG; Start 07/25/17 at 21:00 Gemfibrozil (Lopid) 600 mg BID PO Last administered on 07/26/17 08:27; Admin Dose 600 MG; Start 07/25/17 at 21:00 Lisinopril (Zestril) 10 mg DAILY PO Last administered on 07/26/17 09:18; Admin Dose 10 MG; Start 07/26/17 at 09:00 Isosorbide Mononitrate (Imdur) 30 mg DAILY PO Last administered on 07/26/17 08:26; Admin Dose 30 MG; Start 07/26/17 at 09:00 Diagnostic Test (Pha) (Accu-Chek) 1 ea 02 XX ; Start 07/26/17 at 02:00 Insulin Glargine (Lantus) 14 unit DAILY@08 SC Last administered on 07/26/17 08:30; Admin Dose 14 UNIT; Start 07/26/17 at 08:00 Miscellaneous Information 1 ea NOTE XX ; Start 07/25/17 at 15:00 Glucose (Glutose) 15 gm Q15M PRN PO DECREASED GLUCOSE; Start 07/25/17 at 15:00 Glucose (Glutose) 22.5 gm Q15M PRN PO DECREASED GLUCOSE; Start 07/25/17 at 15: 00 Dextrose (D50w Syringe) 25 ml Q15M PRN IV DECREASED GLUCOSE; Start 07/25/17 at 15:00 Dextrose (D50w Syringe) 50 ml Q15M PRN IV DECREASED GLUCOSE; Start 07/25/17 at 15:00 Glucagon (Glucagen) 1 mg Q15M PRN IM DECREASED GLUCOSE; Start 07/25/17 at 15: 00 Glucose (Glutose) 15 gm Q15M PRN BUCCAL DECREASED GLUCOSE; Start 07/25/17 at 15:00 GEMA APARICIO NP Jul 26, 2017 13:21
[2017-07-26 14:00] VITALS: BP 113/58; RESP 16
[2017-07-26 15:24] LABS: IRON 87 ug/dl (35-150)
[2017-07-26 15:36] LABS: TOTAL IRON BINDING CAPACITY 485 ug/dl (241-421)
[2017-07-26] MEDS: oxyCODONE 5 MG TAB PO PRN (19:25)
[2017-07-26 20:02] VITALS: BP 149/70; RESP 16
[2017-07-26] MEDS: ATORVASTATIN 10 MG TAB PO SCH (21:10)
[2017-07-27] MEDS: ACCU-CHEK XX SCH (01:33)
[2017-07-27 01:51] VITALS: BP 112/61; RESP 16
[2017-07-27] MEDS: PANTOPRAZOLE (EC) 40 MG TAB PO SCH (05:21)
[2017-07-27 07:50] VITALS: BP 116/60; RESP 19
[2017-07-27] MEDS: INSULIN ASPART [NOVOLOG] 3 ML PEN SC SCH ×2 (07:50→11:40)
[2017-07-27 07:55] LABS: BASOPHILS % 0.4 % (0.0-2.0); EOSINOPHILS # 0.1 10^3/ul (0.0-0.5); HEMATOCRIT 22.8 % (42.0-52.0); HEMOGLOBIN 7.5 g/dl (14.0-18.0); LYMPHOCYTES # 1.6 10^3/ul (0.8-2.9); LYMPHOCYTES % 23.8 % (15.0-51.0); MEAN CORPUSCULAR HEMOGLOBIN 28.6 pg (29.0-33.0); MEAN CORPUSCULAR HGB CONC 32.9 g/dl (32.0-37.0); MEAN PLATELET VOLUME 9.4 fl (7.4-10.4); MONOCYTE # 0.7 10^3/ul (0.3-0.9); MONOCYTES % 10.4 % (0.0-11.0); NEUTROPHIL # 4.3 10^3/ul (1.6-7.5); NEUTROPHILS % 62.8 % (39.0-77.0); NUCLEATED RED BLOOD CELLS% 0.3 /100WBC (0.0-0.0); PLATELET COUNT 265 10^3/UL (140-415); RED BLOOD COUNT 2.62 10^6/ul (4.70-6.10); RED CELL DISTRIBUTION WIDTH 16.6 % (11.5-14.5); WHITE BLOOD COUNT 6.9 10^3/ul (4.8-10.8)
--- NOTE | 2017-07-27 08:11 | PN ---
Date/Time of Note Date/Time of Note DATE: 07/27/17 TIME: 08:08 Assessment/Plan VTE Prophylaxis VTE Prophylaxis Intervention: ambulation, SCD's, other (Aspirin 325 mg) Lines/Catheters IV Catheter Type (from Nrsg): Peripheral IV Cote in Place (from Nrsg): No Assessment/Plan Assessment/Plan -Pain Meds as needed -ASA for DVT Prophylaxis x 6 weeks outpatient discussed. -Prescriptions left and patient's chart in regards to [place] 5/325 mg, gabapentin 100 mg, Celebrex 100 mg and aspirin 325 mg to take postoperatively at home. -Continue monitoring as outpatient on discharge -Follow-up at scheduled postop outpatient appointment or sooner if there is any issue. -Hip precautions discussed -Patient Stable -Discharge to Home with home health pending clearance from internal medicine regarding low red blood cell count and hemoglobin. Subjective 24 Hr Interval Summary 71-year-old male postop day 2 status post left total hip arthroplasty via anterior route. Patient continues to improve. Denies any pain or acute overnight events. Patient has been up and walking with physical therapy. Patient states that he is flexing his hip much better than yesterday. Denies any chest pain/tightness or shortness of breath. Patient did have low level in regards to red blood cell count at 2.87 and hemoglobin at 8. Currently awaiting today's results. Pain Control: well controlled Exam/Review of Systems Vital Signs Vitals Vital Signs Date Time Temp Pulse Resp B/P Pulse Ox O2 Delivery O2 Flow Rate FiO2 07/27/17 07:50 98.2 73 19 116/60 98 07/25/17 14:15 Nasal Cannula 2.0 Intake and Output 07/26/17 07/26/17 07/27/17 15:00 23:00 07:00 Intake Total 1860 ml 240 ml Output Total 900 ml 850 ml Balance 960 ml -610 ml Exam Free Text/Dictation -No complications with dressing intact. -Thigh soft -5/5 Quadriceps, Tibialis Anterior, EHL Gastrocnemius/Soleus and Peroneals -Flexing up to 45-50 today compared to around 15-20 yesterday. -Normal Sensation -Palpable DP/PT, Capillary Refill <2 secs -No Distal Edema -Negative Leidy Sign/No calf pain -Toes Freely Movable Constitutional: alert, oriented, well developed Results Result Diagram: 07/27/17 0641 07/26/17 0457 CONNER KHOURY PA-C Jul 27, 2017 08:11
[2017-07-27 08:17] LABS: CALCIUM 8.1 mg/dl (8.4-10.2); CREATININE 0.89 mg/dl (0.61-1.24)
[2017-07-27] MEDS ORDERED: ISOSORBIDE MONONITRATE(SR)60 MG TAB PO SCH (09:00)
[2017-07-27] MEDS: CELECOXIB 200 MG CAP PO SCH (09:26)
[2017-07-27] MEDS: LISINOPRIL 10 MG TAB PO SCH (09:26)
[2017-07-27] MEDS: DOCUSATE SODIUM 100 MG CAP PO SCH (09:26)
[2017-07-27] MEDS: GEMFIBROZIL 600 MG TAB PO SCH (09:26)
[2017-07-27] MEDS: FERROUS FUMARATE (SR) TAB PO SCH (09:26)
[2017-07-27] MEDS: INSULIN GLARGINE [LANtus] 3 ML PEN SC SCH (09:35)
[2017-07-27] MEDS: ASPIRIN (EC) 325 MG TAB PO SCH (09:37)
[2017-07-27] MEDS: SOD CHLORIDE 0.9% 1,000 ML IV SCH (12:15)
--- NOTE | 2017-07-27 12:37 | CONS ---
Date/Time of Note Date/Time of Note DATE: 07/27/17 TIME: 12:34 Assessment/Plan Assessment/Plan Chief Complaint/Hosp Course 71-year-old male who was brought to [facility] for elective left hip arthroplasty by orthopedic colleagues. 1. Left hip osteoarthritis. Status post left hip arthroplasty 07/25/2017. Status: Acute. -Postoperative anticoagulation, diet, weightbearing and antibiotics per orthopedic surgery team. -Continue pain control. 2. Coronary artery disease with history of CABG/PTCA with stenting status: Chronic. Status: Chronic - Continue home medications. 3. Severe cardiomyopathy with last known ejection fraction 20%. Status post AICD placed. Status: Chronic -Continue outpatient medical management. 4. Essential hypertension. Status: Chronic. Comment: Stable. -Continue current antihypertensives regimen-will titrate as indicated. 5. Hypercholesterolemia. Status: Chronic. Comment: stable. -On statin. 6. Type 2 diabetes. Status: Chronic. Comment: Well controlled w/A1C 6.5. In goal sugar range. -Continue Accu-Cheks/ISS/Lantus insulin. 7. Chronic anemia. Status:Chronic. Comment: H&H dropped. Likely secondary to postoperative changes. Patient also has borderline iron deficiency. -We will go ahead and give 1 dose IV iron followed by oral supplementation. Stop IV fluids. -We will repeat H&H in a.m. DVT prophylaxis: Aspirin 325 mg 6 weeks per orthopedic recommendation. Recommend keeping patient overnight for IV iron therapy and to repeat H&H in a.m. If hemoglobin remained stable without any further drop, he is medically cleared for discharge in a.m. per orthopedic recommendation. Recommend continuation of outpatient medical management for underlying comorbid conditions. Patient was seen in collaboration with . Problems: Consultation Date/Type/Reason Admit Date/Time Jul 25, 2017 at 05:30 Referring Provider: BRYANT HUTTON MD 24 HR Interval Summary Free Text/Dictation Overall doing well. Sitting up in chair. Exam/Review of Systems Vital Signs Vitals Vital Signs Date Time Temp Pulse Resp B/P Pulse Ox O2 Delivery O2 Flow Rate FiO2 07/27/17 07:50 98.2 73 19 116/60 98 07/25/17 14:15 Nasal Cannula 2.0 Intake and Output 07/26/17 07/26/17 07/27/17 15:00 23:00 07:00 Intake Total 1860 ml 240 ml Output Total 900 ml 850 ml Balance 960 ml -610 ml Exam General: Well developed,adequately built, not in any acute distress . HEENT: Normocephalic, Atraumatic, No laceration or hematoma; Eyes: PEERL, Conjunctiva clear, Anicteric sclera Neck: Supple without any lymphadenopathy, nontender, no JVD, no carotid bruits, trachea midline, no thyromegaly Cardiac: S1, S2 auscultated, regular rhythm and rate, no mumurs or gallop Pulmonary: Normal respiratory effort. Chest clear to auscultation bilaterally, no adventitious breath sounds GI: Abdomen normal to inspection. Soft, non tender, non- distended, no masses, no rebound tenderness or guarding. Bowel sounds active on all four quadrants Genitourinary: Deferred Extremities: Left hip surgical site intact. Range of motion decreased on left lower extremity secondary to surgical intervention. No cyanosis, clubbing, or edema. Pulses [2+] bilaterally. No focal weakness appreciated. Neurologic: Alert to person, place, time, and situation. Affect appropriate, intact sensation. Skin: Clean,dry, and intact. No ecchymosis, no rashes, or lesions Results Result Diagram: 07/27/17 0641 07/27/17 0641 Results 24 hrs Laboratory Tests Test 07/26/17 12:36 07/26/17 14:34 07/26/17 14:35 07/26/17 17:19 Bedside Glucose 119 151 Ferritin 13.6 Free Triiodothyronine (T3) pg/mL 2.62 L Iron Level 87 Total Iron Binding Capacity 485 H Percent Iron Saturation 18 L Free Thyroxine 0.82 Test 07/26/17 21:13 07/27/17 06:41 07/27/17 08:54 Bedside Glucose 156 150 White Blood Count 6.9 # Red Blood Count 2.62 L Hemoglobin 7.5 L Hematocrit 22.8 L Mean Corpuscular Volume 87.0 Mean Corpuscular Hemoglobin 28.6 L Mean Corpuscular Hemoglobin Concent 32.9 Red Cell Distribution Width 16.6 H Platelet Count 265 Mean Platelet Volume 9.4 Neutrophils % 62.8 Lymphocytes % 23.8 Monocytes % 10.4 Eosinophils % 2.0 Basophils % 0.4 Nucleated Red Blood Cells % 0.3 H Neutrophils # 4.3 Lymphocytes # 1.6 Monocytes # 0.7 Eosinophils # 0.1 Basophils # 0.0 Nucleated Red Blood Cells # 0.0 Sodium Level 142 Potassium Level 4.0 Chloride Level 107 Carbon Dioxide Level 26 Anion Gap 13 Blood Urea Nitrogen 15 Creatinine 0.89 Glucose Level 126 Calcium Level 8.1 L Medications Medications Current Medications Ropivacaine 60 ml/ Morphine Sulfate 4 mg/Clonidine 100 mcg/ Epinephrine 0.3 mg/ Ketorolac Tromethamine 30 mg/Cefuroxime Sodium 750 mg/ Sodium Chloride 50 ml INTRA-OP INJ Last administered on 07/25/17 08:23; Admin Dose 30 ML; Start at 07:00; Stop 07/28/17 at 06:59 Sodium Chloride (NS) 1,000 ml @ 80 mls/hr [id number] IV Last administered on 00:40; Admin Dose 80 MLS/HR; Start 07/25/17 at 11:03 Oxycodone HCl (Roxicodone) 20 mg Q3H PRN PO PAIN LEVEL 8-10; Start 07/25/17 at 12:00 Oxycodone HCl (Roxicodone) 10 mg Q3H PRN PO PAIN LEVEL 4-7 Last administered on 07/26/17 19:25; Admin Dose 10 MG; Start 07/25/17 at 12:00 Oxycodone HCl (Roxicodone) 5 mg Q3H PRN PO PAIN LEVEL 1-3 Last administered on 07/26/17 10:15; Admin Dose 5 MG; Start 07/25/17 at 12:00 Zolpidem Tartrate (Ambien) 5 mg HS PRN PO INSOMNIA; Start 07/25/17 at 12:00 Celecoxib (Celebrex) 200 mg BID PO Last administered on 07/27/17 09:26; Admin Dose 200 MG; Start 07/26/17 at 09:00 Pantoprazole (Protonix Tab) 40 mg DAILY@06 PO Last administered on 07/27/17 05:21; Admin Dose 40 MG; Start 07/26/17 at 06:00 Docusate Sodium/ Ferrous Fumarate (Kerri-Sequels) 1 tab BID PO Last administered on 07/27/17 09:26; Admin Dose 1 TAB; Start 07/26/17 at 09:00 Docusate Sodium (Colace) 200 mg BID PO Last administered on 07/27/17 09:26; Admin Dose 200 MG; Start 07/26/17 at 09:00; Stop 07/28/17 at 21:01 Simethicone (Mylicon) 80 mg TID PRN PO DISTENSION/GAS/BLOATING; Start at 12:00 Senna/Docusate Sodium (Senokot-S) 2 tab BID PRN PO CONSTIPATION; Start at 12:00 Magnesium Hydroxide (Milk Of Mag) 30 ml HS PRN PO CONSTIPATION; Start at 12:00 Bisacodyl (Dulcolax Supp) 10 mg DAILY PRN [place] CONSTIPATION; Start 07/25/17 at 12:00 Sodium Biphosphate/ Sodium Phosphate (Fleet Enema) 133 ml DAILY PRN [place] CONSTIPATION; Start 07/25/17 at 12:00 Diphenhydramine HCl (Benadryl) 25 mg Q4H PRN IM ITCHING OR RASH; Start at 12:00 Aspirin (Ecotrin) 325 mg BID PO Last administered on 07/27/17 09:37; Admin Dose 325 MG; Start 07/25/17 at 21:00 Atorvastatin Calcium (Lipitor) 10 mg HS PO Last administered on 07/26/17 21: 10; Admin Dose 10 MG; Start 07/25/17 at 21:00 Carvedilol (Coreg) 3.125 mg BID PO Last administered on 07/27/17 09:26; Admin Dose 3.125 MG; Start 07/25/17 at 21:00 Gemfibrozil (Lopid) 600 mg BID PO Last administered on 07/27/17 09:26; Admin Dose 600 MG; Start 07/25/17 at 21:00 Lisinopril (Zestril) 10 mg DAILY PO Last administered on 07/27/17 09:26; Admin Dose 10 MG; Start 07/26/17 at 09:00 Diagnostic Test (Pha) (Accu-Chek) 1 ea 02 XX ; Start 07/26/17 at 02:00 Insulin Glargine (Lantus) 14 unit DAILY@08 SC Last administered on 07/27/17 09:35; Admin Dose 14 UNIT; Start 07/26/17 at 08:00 Miscellaneous Information 1 ea NOTE XX ; Start 07/25/17 at 15:00 Glucose (Glutose) 15 gm Q15M PRN PO DECREASED GLUCOSE; Start 07/25/17 at 15:00 Glucose (Glutose) 22.5 gm Q15M PRN PO DECREASED GLUCOSE; Start 07/25/17 at 15: 00 Dextrose (D50w Syringe) 25 ml Q15M PRN IV DECREASED GLUCOSE; Start 07/25/17 at 15:00 Dextrose (D50w Syringe) 50 ml Q15M PRN IV DECREASED GLUCOSE; Start 07/25/17 at 15:00 Glucagon (Glucagen) 1 mg Q15M PRN IM DECREASED GLUCOSE; Start 07/25/17 at 15: 00 Glucose (Glutose) 15 gm Q15M PRN BUCCAL DECREASED GLUCOSE; Start 07/25/17 at 15:00 Isosorbide Mononitrate (Imdur) 60 mg DAILY PO Last administered on 07/27/17t 09:26; Admin Dose 60 MG; Start 07/27/17 at 09:00 GEMA APARICIO NP Jul 27, 2017 12:37
[2017-07-27] MEDS ORDERED: SOD FERRIC GLUC COMPLX 125 MG in SOD CHLORIDE 0.9% 100 ML IVPB ONE (16:00)
--- NOTE | 2017-07-31 08:16 | DS ---
Date/Time of Note Date/Time of Note DATE: 07/31/17 TIME: 08:15 Discharge Summary Admission/Discharge Info Admit Date/Time Jul 25, 2017 at 05:30 Discharge Date/Time Jul 27, 2017 at 17:20 Discharge Diagnosis Status post left total hip arthroplasty via anterior route. Patient Condition: Good Hospital Course On the day of admission, the patient underwent left total hip replaced Intraoperative complications: None Postoperative complications: None The patient was given prophylactic antibiotics and anticoagulants. On the day of surgery and first postoperative day patient was started on gait training and was taught usual restrictions following anterior hip replacement On postoperative day 1 dressing was clean dry and intact. No complications were observed. On the day of discharge, the wound was clean and healing well; there was no sign of infection. Wound care instructions were discussed with the patient. Discharge Temperature: 98.2 Discharge White Blood Cell Count: 6.9 Discharge Hemoglobin: 7.5 The patient was discharged home with home health. Arrangements were made for visiting nurses and home health/physical therapy. The patient will be seen in office at scheduled postoperative evaluation date given on their preoperative exam. Should patient complain of any problems prior to scheduled postoperative evaluation date, they may call into outpatient clinic to determine if they need to be scheduled at sooner appointment to be seen immediately if needed. Discharge medications: As per medication reconciliation form Diet: Same as preadmission diet. This is Luis A Coleman PA-C dictating discharge summary for Dr. Winter Hyman. Home Meds Reported Medications Lisinopril* (Lisinopril*) 10 Mg Tablet, 10 MG PO DAILY, TAB 15 Amlodipine Besylate* (Norvasc*) 10 Mg Tablet, 10 MG PO DAILY, TAB 15 Nitroglycerin* (Nitroglycerin* SL) 0.4 Mg Tab.subl, 0.4 MG SL Q5MIN Y for CHEST PAIN, BOTTLE 12/08/14 Gemfibrozil* (Lopid*) 600 Mg Tablet, 600 MG PO BID, TAB 15 Carvedilol* (Coreg*) 3.125 Mg Tablet, 3.125 MG PO BID, TAB 15 Atorvastatin Calcium (Atorvastatin Calcium) 10 Mg Tab, 10 MG PO HS, TAB 15 Isosorbide Mononitrate* (Isosorbide Mononitrate*) 120 Mg Tab.sr.24h, 120 MG PO DAILY, TAB.SA 12/08/14 Metformin* (Glucophage*) 1,000 Mg Tablet, 1000 MG PO BID, TAB 12/08/14 Aspirin* (Aspirin*) 325 Mg Tablet, 325 MG PO DAILY, TAB 12/08/14 Follow-up Plan Follow-up at your postoperative visit provided to you at your preoperative exam. Primary Care Provider MD PENG Carlos KERBY PA-C Jul 31, 2017 08:16
== END 2017-07-27 17:20 | disposition home health service (06) | DRG 470 ==
LOC: EDSTATUS 09:30 → REC 07-25 05:30 → MS1 07-25 13:00
PROVIDERS: ADMIT Orthopaedic Surgery Adult Reconstructive Orthopaedic Surgery; ATTEND Orthopaedic Surgery Adult Reconstructive Orthopaedic Surgery
PROC: 0SRB04A Replacement of Left Hip Joint with Ceramic on Polyethylene Synthetic Substitute, Uncemented, Open Approach (ICD-10-PCS; principal; 2017-07-25 07:30)
DX: M16.12 Unilateral primary osteoarthritis, left hip (principal); I42.9 Cardiomyopathy, unspecified; E11.9 Type 2 diabetes mellitus without complications; I10 Essential (primary) hypertension; Z95.810 Presence of automatic (implantable) cardiac defibrillator; D64.9 Anemia, unspecified; Z95.1 Presence of aortocoronary bypass graft; E78.00 Pure hypercholesterolemia, unspecified
CPT/HCPCS: 71010; 72170; 73500; 73530; 80048; 80061; 82728; 82962; 83036; 83540; 83735; 84100; 84439; 84443; 84481; 85025; 86850; 86900; 86901; 86920; 87086; 88304; 88311; 97116; 97163; 97165; 97530; 97535; C1776; J0131; J0171; J0690; J0697; J0735; J1100; J1170; J1644; J1815; J1885; J2274; J2405; J2795; J2916; J3010; J7030; J7120

== ENCOUNTER → 2017-08-09 | Outpatient (CLI) | END | disposition home or self-care (01) ==

== ENCOUNTER → 2017-08-17 | Outpatient (CLI) | END | disposition home or self-care (01) ==

== ENCOUNTER → 2017-08-20 | Outpatient (CLI) | END | disposition home or self-care (01) ==

== ENCOUNTER 2017-08-22 08:20 | Inpatient (IN) | END 2017-08-22 15:15 | disposition home or self-care (01) | DRG 561 ==

== ENCOUNTER → 2017-08-28 | Outpatient (CLI) | END | disposition home or self-care (01) ==

== ENCOUNTER → 2017-10-26 | Outpatient (CLI) | END | disposition home or self-care (01) ==

== ENCOUNTER → 2018-02-28 | Outpatient (CLI) | END | disposition home or self-care (01) ==

== ENCOUNTER → 2018-10-08 | Outpatient (CLI) | payer MEDICARE, OTHER ==
[~2018-10-08] MED LIST changes: -ACETAMINOPHEN 1000MG/100ML IV 100 ML IVPB ONE; +ASPI325T30 PO; -ASPI325T4 PO; -ATOR10TA65 PO; +ATOR40TA68 PO; -CEFAZOLIN 2 GM/50 ML (PMX) 50 ML IVPB ONE; +CELE200C PO; -CELECOXIB 200 MG CAP PO ONE; -DEXAMETHASONE 4 MG/ML 1 ML INJ IV ONE; +GABA100C14 PO; -HIP PAIN COCKTAIL (CEFUROXIME) INJ SCH; -ISOS120T15 PO; -LACTATED RINGER'S 1,000 ML IV* SCH; -LANSOPRAZOLE 30 MG CAP PO ONE; -LISI10TA2 PO; +OMEP20CA16 PO; -ONDANSETRON 4 MG INJ IV ONE; +PRAS10TA6 PO; +RANO500T2 PO; +TAMS-14 PO; -TRANEXAMIC ACID 1,000 MG in DEXTROSE 5% 100 ML IV ONE; -TRANEXAMIC ACID 1,000 MG in DEXTROSE 5% 100 ML IVPB ONE; -oxyCODONE (CR) 10 MG TAB [oxyCONTIN] PO ONE
--- NOTE | 2018-10-08 16:49 | HKNOTE ---
DATE OF SERVICE: 10/08/2018 HISTORY OF PRESENT ILLNESS: Mr. Rivas is 2 years status post left total hip arthroplasty. He has been doing well. He does not use any assistive devices. He does not require any pain medication. DATE OF SURGERY: 07/25/2017, left total hip arthroplasty. GAIT: Nonantalgic gait, reciprocal gait pattern. LEFT HIP EXAMINATION: Healed incision. Zero to 120 degrees of hip flexion, 35 degrees of extension, 50 degrees of external rotation, 40 degrees of internal rotation. Leg lengths are equal. IMAGING STUDIES: AP pelvis and left hip 2-view x-rays: X-rays in the office demonstrate the prosthe sis to be in acceptable alignment. No fractures, dislocations or loosening is seen. IMPRESSION: A 72-year-old male status post left total hip arthroplasty. PLAN: He has been doing well since his total hip arthroplasty. He was instructed on antibiotic use prior to dental procedure. He will follow up in 2 years. Dictated By: BRYANT CHEN/ABEL Conf#: [id number] DID#: [id number]
--- NOTE | 2018-10-09 12:40 | RADRPT ---
PROCEDURE: XR Hip. CLINICAL INDICATION: PAIN TECHNIQUE: AP and frog lateral views of the left hip were performed. COMPARISON: PELVIS 07/25/2017; [facility] PELVIS 12/29/2016 FINDINGS: Left hip total arthroplasty appears intact. No periprosthetic fracture or malalignment. Soft tissues are unremarkable. Surgical clips over the left groin. IMPRESSION: Left hip BECKI without evidence of hardware complication. RPTAT: XX Physician Stephenie Date Time Electronically viewed and signed by Simon Orr Physician on 10/09/2018 12:40 RF/
== END | disposition home or self-care (01) ==
LOC: HKI 14:16
PROVIDERS: ATTEND Orthopaedic Surgery Adult Reconstructive Orthopaedic Surgery
DX: Z09 Encounter for follow-up examination after completed treatment for conditions other than malignant neoplasm (principal); Z96.642 Presence of left artificial hip joint
CPT/HCPCS: 73502; G0463